=== PATIENT | male | born 1975 | race Caucasian/White ===

== ENCOUNTER 2021-01-22 16:16 | Emergency (ER) | payer OTHER ==
[~2021-01-22] VITALS: Ht 180.3 cm; Wt 115.7 kg
[2021-01-22] MEDS ORDERED: BACTRIM DS TAB1 EACH PO (18:41)
== END 2021-01-22 18:48 | disposition home or self-care (01) ==
LOC: ED 16:16
DX: N41.0 Acute prostatitis (principal)
CPT/HCPCS: 81001; 87077; 87088; 87186; 87491; 87591; 99284

== ENCOUNTER 2022-07-26 20:15 | Emergency (ER) | payer OTHER ==
[~2022-07-26] VITALS: Ht 180.3 cm; Wt 108.9 kg
[~2022-07-26 20:15] MED LIST: BACTRIM DS TAB1 EACH PO
[2022-07-26] MEDS ORDERED: PERCOCET 5-3251 EACH PO (22:47)
== END 2022-07-26 23:23 | disposition home or self-care (01) ==
LOC: ED 20:15
DX: S32.011A Stable burst fracture of first lumbar vertebra, initial encounter for closed fracture (principal); S32.029A Unspecified fracture of second lumbar vertebra, initial encounter for closed fracture; Z20.822 Contact with and (suspected) exposure to COVID-19; W17.89XA Other fall from one level to another, initial encounter; Z79.899 Other long term (current) drug therapy
CPT/HCPCS: 36415; 70450; 71260; 72125; 74177; 80053; 85025; 86850; 86900; 86901; 87502; 90471; 99284-25; C9803; G0480; J2405; J3010; J7121; Q9967; U0003